=== PATIENT | female | born 2000 | race Caucasian/White ===

== ENCOUNTER 2021-05-08 21:39 | Emergency (ER) | payer OTHER ==
--- NOTE | 2021-05-08 22:10 | ED Physician Documentation ---
History of Present Illness - Stated complaint Stated Complaint: LT KNEE INJ - Chief complaint Chief Complaint: Ext Problem - History obtained from History obtained from: Patient - Additonal information Additional information: 20yF p/w L knee injury after twisting it at home about an hour [employer]. patient states she had sudden popping sensation and felt like her kneecap came out and then relocated. She was able to ambulate on it with severe pain immediately after and is also ambulatory in the emergency department with pain. worse with rom of knee. constant, aching, nonradiating. denies numbness or weakness. 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 : None HEENT: None Psych: Depression, Anxiety Musculoskeletal: None Derm: None - Past Surgical History Past Surgical History: Yes General: Other /HAND GLUER AND SLICER: Dilation and currettage - Present Medications Home Medications: Ambulatory Orders Medication Instructions Recorded Confirmed Elagolix Sodium [Orilissa] 200 mg PO BID 05/08/21 05/08/21 Ondansetron HCl [Zofran] 4 mg PO PRN PRN 05/08/21 05/08/21 cloNIDine [Catapres] 0.1 mg PO DAILY 05/08/21 05/08/21 - Allergies Allergies/Adverse Reactions: Allergies Allergy/AdvReac Type Severity Reaction Status Date / Time cephalexin [From Keflex] AdvReac Hives Verified 05/08/21 21:54 codeine AdvReac Hives Verified 05/08/21 21:54 tramadol AdvReac Hives Verified 05/08/21 21:53 - Social History Does the pt smoke?: No Smoking Status: Never smoker Does the pt drink ETOH?: Yes Does the pt have substance abuse?: No - POLST Patient has POLST: No PD ED PE NORMAL - Vitals Vital signs reviewed: Yes - General General: Alert and oriented X 3, No acute distress, Well developed/nourished - HEENT HEENT: Atraumatic, PERRL, EOMI - Derm Derm: Normal color, Warm and dry - Extremities Extremities: Other (L knee tender with rom. negative gus and anterior drawer sign. no laxity with valgus/varus. patella, femur, tib/fib nontender. +tender with rom of knee. minimal to mild swelling of L knee. 2+ BL DP pulses. normal sensation and cap refill ) - Neuro Neuro: No motor deficit, No sensory deficit - Psych Psych: Normal mood, Normal affect Results - Vitals Vitals: Vital Signs - 24 hr 05/08/21 21:50 Temperature 36.4 C L Heart Rate 84 Respiratory 16 Rate Blood Pressure 121/76 O2 Saturation 100 Oxygen O2 Source Room air PD MEDICAL DECISION MAKING - ED course ED course: 20-year-old woman presents with left knee sprain. knee immobilizer provided. return precautions given. plan to f/u with pmd. Departure - Departure Disposition: 01 Home, Self Care Clinical Impression: Knee injury Condition: Good Instructions: ED RICE Comments: You are seen in the emergency department for knee injury. You do not have any broken bones on physical exam but you do likely have a knee sprain. Wear the knee immobilizer for comfort and ambulate as tolerated. Take ibuprofen 600 mg every 6 hours for pain and for the anti-inflammatory properties on a full stomach. Follow-up with your primary doctor this week. Return to the emergency department if you have new or worsening symptoms or other concerns. Forms: Activity restrictions
[2021-05-08 22:24] VITALS: BP 122/74
== END 2021-05-08 22:27 | disposition home or self-care (01) ==
LOC: ED 21:39
DX: S89.92XA Unspecified injury of left lower leg, initial encounter (principal); X50.1XXA Overexertion from prolonged static or awkward postures, initial encounter; Y92.009 Unspecified place in unspecified non-institutional (private) residence as the place of occurrence of the external cause
CPT/HCPCS: 99282

== ENCOUNTER 2021-06-13 12:16 | Emergency (ER) | payer OTHER ==
[2021-06-13 12:49] LABS: BILIRUBIN,URINE NEGATIVE (NEGATIVE); GLUCOSE, URINE (UA) NEGATIVE (NEGATIVE); KETONES,URINE (UA) NEGATIVE (NEGATIVE); LEUKOCYTE ESTERASE, URINE NEGATIVE (NEGATIVE); NITRITE,URINE NEGATIVE (NEGATIVE); OCCULT BLOOD,URINE NEGATIVE (NEGATIVE); PROTEIN,URINE NEGATIVE (NEGATIVE); UROBILINOGEN,URINE 0.2 (NORMAL) E.U./dL (NORMAL)
[2021-06-13 12:50] LABS: CLARITY,URINE CLEAR (CLEAR); HCG UR QUAL NEGATIVE
[2021-06-13 12:58] LABS: BASOPHILS % (AUTO) 0.5 %; EOSINOPHILS # (AUTO) 0.1 10^3/uL (0.0-0.7); EOSINOPHILS % (AUTO) 2.3 %; HCT - HEMATOCRIT 41.6 % (37.0-47.0); HGB - HEMOGLOBIN 13.4 g/dL (12.0-16.0); LYMPHOCYTES # (AUTO) 2.3 10^3/uL (1.5-3.5); LYMPHOCYTES % (AUTO) 41.4 %; MEAN CORPUSCULAR HEMOGLOBIN 28.5 pg (27.0-31.0); MEAN CORPUSCULAR HGB CONC 32.2 g/dL (32.0-36.0); MEAN CORPUSCULAR VOLUME 88.3 fL (81.0-99.0); MONOCYTES # (AUTO) 0.4 10^3/uL (0.0-1.0); MONOCYTES % (AUTO) 6.3 %; NEUTROPHILS # (AUTO) 2.7 10^3/uL (1.5-6.6); NEUTROPHILS % (AUTO) 49.3 %; PLT - PLATELET COUNT 255 10^3/uL (130-450); RED BLOOD COUNT 4.71 10^6/uL (4.20-5.40); RED CELL DISTRIBUTION WIDTH 11.9 % (12.0-15.0); WHITE BLOOD COUNT 5.6 x10^3/uL (4.8-10.8)
[2021-06-13 13:23] LABS: ALBUMIN 4.6 g/dL (3.2-5.5); ALBUMIN/GLOBULIN RATIO 1.5 (1.0-2.2); BILIRUBIN,TOTAL 0.7 mg/dL (0.2-1.0); CALCIUM 9.9 mg/dL (8.5-10.3); CREATININE 0.9 mg/dL (0.4-1.0); POTASSIUM 4.1 mmol/L (3.5-5.0); TOTAL PROTEIN 7.7 g/dL (6.7-8.2)
--- NOTE | 2021-06-13 13:37 | ED Physician Documentation ---
PD HPI ABD PAIN - Stated complaint Stated Complaint: ABD PX - Chief complaint Chief Complaint: Abd Pain - History obtained from History obtained from: Patient - Additional information Additional information: 20-year-old woman on estrogen suppressing medications and a history of endometriosis and ovarian cysts presents with right lower quadrant pain for the last 24 hours. Gradual in onset and progressive. It is associated with nausea. No associated fevers or chills. No history of abdominal surgeries. She declines pain medication on initial evaluation. 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 : None HEENT: None Psych: Depression, Anxiety Musculoskeletal: None Derm: None - Past Surgical History Past Surgical History: Yes General: Other /BLOCK INSPECTOR: Dilation and currettage - Present Medications Home Medications: Ambulatory Orders Medication Instructions Recorded Confirmed Elagolix Sodium [Orilissa] 200 mg PO BID 05/08/21 05/08/21 Ondansetron HCl [Zofran] 4 mg PO PRN PRN 05/08/21 05/08/21 cloNIDine [Catapres] 0.1 mg PO DAILY 05/08/21 05/08/21 - Allergies Allergies/Adverse Reactions: Allergies Allergy/AdvReac Type Severity Reaction Status Date / Time cephalexin [From Keflex] AdvReac Hives Verified 06/13/21 12:21 codeine AdvReac Hives Verified 06/13/21 12:21 hydrocodone AdvReac Hives Verified 06/13/21 12:21 tramadol AdvReac Hives Verified 06/13/21 12:21 - Social History Does the pt smoke?: No Smoking Status: Never smoker Does the pt drink ETOH?: Yes Does the pt have substance abuse?: No - POLST Patient has POLST: No PD ED PE NORMAL - Vitals Vital signs reviewed: Yes - General General: Alert and oriented X 3, No acute distress - HEENT HEENT: PERRL, EOMI - Neck Neck: Supple, no meningeal sign, No bony TTP - Cardiac Cardiac: RRR, No murmur - Respiratory Respiratory: No respiratory distress, Clear bilaterally - Abdomen Abdomen: Other (Tender in the right lower quadrant with positive psoas sign but negative Rovsing. Soft belly) - Back Back: No CVA TTP, No spinal TTP - Derm Derm: Normal color, Warm and dry - Extremities Extremities: No edema, No calf tenderness / cord - Neuro Neuro: Alert and oriented X 3, Normal speech Results - Vitals Vitals: Vital Signs - 24 hr 06/13/21 06/13/21 12:21 13:51 Temperature 36.5 C Heart Rate 84 59 L Respiratory 16 16 Rate Blood Pressure 122/76 122/72 O2 Saturation 100 99 Oxygen O2 Source Room air - Labs Labs: Laboratory Tests 06/13/21 06/13/21 06/13/21 12:35 12:53 12:53 WBC 5.6 RBC 4.71 Hgb 13.4 Hct 41.6 MCV 88.3 MCH 28.5 MCHC 32.2 RDW 11.9 L Plt Count 255 MPV 9.0 Neut # (Auto) 2.7 Lymph # (Auto) 2.3 Beckham # (Auto) 0.4 Eos # (Auto) 0.1 Baso # (Auto) 0.0 Absolute Nucleated RBC 0.00 Nucleated RBC % 0.0 Sodium 144 Potassium 4.1 Chloride 107 Carbon Dioxide 28 Anion Gap 9.0 BUN 10 Creatinine 0.9 Estimated GFR (MDRD) 80 L Glucose 118 H Calcium 9.9 Total Bilirubin 0.7 AST 21 ALT 16 Alkaline Phosphatase 81 Total Protein 7.7 Albumin 4.6 Globulin 3.1 Albumin/Globulin Ratio 1.5 Lipase 37 Urine Color YELLOW Urine Clarity CLEAR Urine pH 8.0 H Ur Specific [place] 1.025 Urine Protein NEGATIVE Urine Glucose (UA) NEGATIVE Urine Ketones NEGATIVE Urine Occult Blood NEGATIVE Urine Nitrite NEGATIVE Urine Bilirubin NEGATIVE Urine Urobilinogen 0.2 (NORMAL) Ur Leukocyte Esterase NEGATIVE Ur Microscopic Review NOT INDICATED Urine Culture Comments NOT INDICATED Urine HCG, Qual NEGATIVE - Rads (name of study) CT A/P Radiology: EMP read contemporaneously (Normal appendix, heterogenous spleen) PD MEDICAL DECISION MAKING - ED course ED course: 20-year-old woman presents with right lower quadrant pain. Negative CT and fairly benign exam. Labs also unremarkable. She is not concerned for STDs. We discussed the incidental finding and she will follow up with her PCP. Departure - Departure Disposition: 01 Home, Self Care Clinical Impression: Abdominal pain Qualifiers: Abdominal location: right lower quadrant Qualified Code(s): R10.31 - Right lower quadrant pain Condition: Good Record reviewed to determine appropriate education?: Yes Instructions: ED Abdominal Pain Female Non-Specific Abdominal Pain Comments: The radiologist noted some heterogeneity of your spleen. You can follow-up with your doctor and discuss an ultrasound of this at your convenience. Or sooner if you develop pain on the other side. Return for new or worsening symptoms. Tylenol as needed for pain. Also return in 24 hours for recheck if not better. Discharge Date/Time: 06/13/21 15:02
[2021-06-13 13:52] VITALS: BP 122/72
[2021-06-13] MEDS ORDERED: IOVERSOL 320 100 ML VIAL IVP ONE ×2 (13:55→22:43)
--- NOTE | 2021-06-13 14:52 | CT Report ---
PROCEDURE: Abdomen/Pelvis W INDICATIONS: IV only, RLQ pain CONTRAST: IV CONTRAST: Optiray 320 ml: 100 PO CONTRAST: *NO PO CONTRAST TECHNIQUE: After the administration of IV contrast, 5 mm thick sections acquired from the diaphragms to the symp hysis. 5 mm thick coronal and sagittal reformats were acquired. For radiation dose reduction, the f ollowing was used: automated exposure control, adjustment of mA and/or kV according to patient size. COMPARISON: None. FINDINGS: Image quality: Excellent. ABDOMEN: Lung bases: Lung bases are clear. Heart size is normal. Solid organs: Liver and spleen are normal in size. Mild hepatic steatosis is present. Heterogeneous appearance of the spleen is present. This appears more prominent than expected for normal contrast b olus phase. Gallbladder is grossly unremarkable. It is noted to be contracted. Biliary system is non dilated. Pancreas enhances normally. No adrenal nodules. Kidneys demonstrate normal size and enha ncement, without hydronephrosis. Peritoneum and bowel: Bowel loops demonstrate normal wall thickness and caliber. No free fluid or a ir. Appendix is normal. No right lower quadrant inflammatory change. Nodes and vessels: No retroperitoneal or mesenteric adenopathy by size criteria. Aorta and inferior vena cava are normal in size. Miscellaneous: No ventral hernias. PELVIS: Genitourinary: Bladder wall thickness is normal. Miscellaneous: No inguinal hernias or adenopathy. Bones: No suspicious bony lesions. No vertebral body compression fractures. IMPRESSION: 1. Appendix is normal. No visualized cause of right lower quadrant pain. 2. Heterogeneous appearance of the spleen, more prominent than expected for typically visualized cont rast bolus phase appearance. As clinically appropriate, further evaluation with limited ultrasound is recommended. Reviewed by: Nikki Barbosa MD on 06/13/2021 2:50 PM PDT Approved by: Nikki Barbosa MD on 06/13/2021 2:50 PM PDT Station ID: [id number]
== END 2021-06-13 15:02 | disposition home or self-care (01) ==
LOC: ED 12:16
DX: R10.31 Right lower quadrant pain (principal); R11.0 Nausea; R93.89 Abnormal findings on diagnostic imaging of other specified body structures
CPT/HCPCS: 36415; 74177; 80053; 81003; 81025; 83690; 85025; 99283; 99284; Q9967; 81001; 87086